=== PATIENT | male | born 1965 ===

== ENCOUNTER 2022-06-21 07:12 | Day surgery (SDC) | payer BC ==
[2022-06-21] MEDS ORDERED: Ringers Lactate 1,000 ML IV ONE (07:41)
[2022-06-21] MEDS ORDERED: CEFAZOLIN SODIUM 1 GM/VIAL ONE (07:41)
[2022-06-21] MEDS ORDERED: propofoL 200 MG/20 ML VIAL IV ONE (08:46)
[2022-06-21] MEDS ORDERED: MIDAZOLAM HCL 2 MG/2 ML INJ ONE (08:47)
[2022-06-21] MEDS ORDERED: ROCURONIUM 50 MG/5 ML VIAL IV ONE (08:47)
[2022-06-21] MEDS ORDERED: FENTANYL CITR 100 MCG/2 ML ONE ×3 (08:47→09:44)
[2022-06-21] MEDS ORDERED: LIDOCAINE 2% MPF 5 ML VIAL ONE (08:47)
[2022-06-21] MEDS ORDERED: LIDOCAINE JELLY 2%- 5 ML TUBE ONE (09:13)
[2022-06-21] MEDS ORDERED: NS 0.9% VIAL 10 ML ONE ×2 (09:14→09:38)
[2022-06-21 09:26] LABS: Potassium 3.8 mmol/L (3.5-5.1)
[2022-06-21] MEDS ORDERED: Phenylephrine HCl 10 MG/ML 1 ML VIAL ONE (09:38)
[2022-06-21] MEDS ORDERED: ONDANSETRON 4 MG/2 ML VIAL ONE (09:43)
[2022-06-21] MEDS ORDERED: EPHEDRINE SULF 50 MG/ML VIAL ONE (09:54)
[2022-06-21] MEDS ORDERED: LIDOCAINE 1% W/EPI 1:100,000 30 ML VIAL ONE (10:07)
[2022-06-21] MEDS ORDERED: BACITRACIN OINTMENT 14 GM TUBE TOP ONE (10:07)
[2022-06-21] MEDS ORDERED: EPINEPHRINE/PF 1 MG/ML AMP ONE (10:12)
[2022-06-21] MEDS ORDERED: OFLOXACIN OPH 0.3%-5 ML BTL ONE (10:35)
[2022-06-21] MEDS ORDERED: PROMETHAZINE INJ 25 MG/ML AMP ONE (10:56)
[2022-06-21] MEDS: HYDROMORPHONE HCL 1 MG/ML INJ ONE ×2 (11:05→11:13)
[2022-06-21] MEDS ORDERED: HYDROCODONE/APAP 10/325 TAB ONE (11:43)
[2022-06-21 12:20] VITALS: BP 129/73; TEMP 97; O2SAT 99
[2022-06-21] MEDS ORDERED: SUCCINYLCHOLINE 20 MG/ML (10 ML) IV ONE (14:01)
--- NOTE | 2022-06-22 12:46 | OP ---
Date of Procedure: 06/21/2022 Surgeon: CINDY ROBERTS Preoperative Diagnosis: Left tympanic membrane perforation located centrally. Postoperative Diagnosis: Left tympanic membrane perforation located centrally. Procedures: 1. Left ear tympanoplasty with temporalis fascial graft. 2. Facial nerve monitoring.. Anesthesia: General. Endotracheal anesthesia was administered. I also infiltrated approximately 5-10 mL of 1.5% lidocaine with 1:200,000 epinephrine at the postauricular incision site and at the bony cartilaginous junction of the left external auditory canal. Specimens: None. Estimated Blood Loss: Scant, less than 5 mL. Findings: Approximately, 50% central left tympanic membrane perforation. [place] intact. No evidence of external auditory canal or middle ear effusion. Complications: None. Disposition: Stable. Patient tolerated the procedure well. Description Of Procedure: Patient was transferred from the preoperative holding area to the operative suite by Department of Anesthesia, placed on the operating room table supine, sedated, intubated in normal fashion. Table was rotated between 90 and 180 degrees and I examined his ear preoperatively with disease microscope with auto-focus/zoom lens. Moderate amount of cerumen was removed with a curette. I was also able to remove some squamous debris and then infiltrated approximately 3 mL of 1.5% lidocaine with 1:200,000 epinephrine at the bony cartilaginous junction. I then shaved the postauricular site and then infiltrated additional 3-5 mL of 0.5% lidocaine with 1:200,000 epinephrine. We then calibrated the patient to the facial nerve monitoring system and it was functioning appropriately. Patient was then sterilely prepped and draped. I inserted a 6.5 mm ear speculum into the lateral ends of the left ear canal and suctioned out Betadine solution. I was able to remove squamous debris medially and clean the ear adequately with a #5 and a 7 [place] suctions. I turned my attention to the postauricular side, which a curvilinear incision was made with a #15 blade scalpel through the skin and subcutaneous tissue, and then I switched to a needlepoint electrocautery on the twentieth setting of coagulation to dissect down to the temporalis fascia. A large temporalis fascia graft was removed with curved iris scissors and placed underneath a heating lamp and pressed flat. I then placed my attention back to the ear canal and made an incision from the 12 to 6 o'clock, approximately 3-5 mm lateral to the tympanic annulus with a sickle knife. I then elevated the flap with a Soriano and the D knife. Once down the tympanic annulus, I released it from the bony edge. Patient had a rather large scutum, but I opted not to drill this down as I felt I could easily place the graft over that and patient had very thick canal skin. Once I was able to remove the flap, I also freshened the edges of the perforation with a curved pick. I then took the temporalis fascial graft and placed it between the [place] tympanic membrane between the malleus and incus and the tympanic membrane and then layered it over the bony canal and then I placed the tympanomeatal flap over that. I then placed an additional small piece of temporalis fascial graft over the perforated site lateral to the tympanomeatal flap. I then packed the middle ear with Gel-Foam before placing the graft and then packed the ear canal with additional Gel-Foam and the Gel-Foam was coated with ofloxacin drops and Afrin. The postauricular incision was reapproximated by closing the subcutaneous and dermal tissues with 4-0 Monocryl in a simple interrupted fashion followed by 4-0 Monocryl in a continuous running fashion to close the epidermis. A compressive dressing was placed and the patient tolerated the procedure well. He will be discharged home on antibiotics and analgesic medication and will follow up in 1-2 weeks. Patient was instructed not to lift more than 20 pounds and that he not use straws or anything that requires a sucking motion during the healing phase for at least 4 weeks. COLUMBA/DEBORAH Voice ID: [id number] Report ID: [id number]
== END 2022-06-21 12:24 | disposition home or self-care (01) ==
LOC: OR 07:12
PROVIDERS: ATTEND Otolaryngology Facial Plastic Surgery
PROC: 0JB00ZZ Excision of Scalp Subcutaneous Tissue and Fascia, Open Approach (ICD-10-PCS; 2022-06-21)
PROC: 09U877Z Supplement Left Tympanic Membrane with Autologous Tissue Substitute, Via Natural or Artificial Opening (ICD-10-PCS; principal; 2022-06-21 09:00)
DX: H72.02 Central perforation of tympanic membrane, left ear (principal)
CPT/HCPCS: 69610; 15769; 80048; 36415; J2704; J0171; J2550; J0330; J2370; J2001; J2250; J3010 ×3; A4216 ×2; J1170; J7120; J2405; J0690